=== PATIENT | male | born 1965 | race Caucasian/White ===

== ENCOUNTER → 2016-08-06 | Outpatient (CLI) | payer BC ==
[~2016-08-06] MED LIST: ALEVE220 MG PO; ASA325 MG PO; LOSARTAN-HCTZ1 EAC1 PO; METAMUCIL SF P3.4 GM PO; OXY IR DPS5 MG PO; PROTONIX40 MG PO; ULTRAM DPS50 MG PO
== END | disposition home or self-care (01) ==
LOC: PTH.S 09:00
DX: Z01.818 Encounter for other preprocedural examination (principal); I10 Essential (primary) hypertension; Z96.642 Presence of left artificial hip joint

== ENCOUNTER 2016-08-20 05:29 | Inpatient (IN) | payer BC ==
[~2016-08-20] VITALS: Ht 177.8 cm; Wt 111.0 kg
[2016-08-22] MEDS ORDERED: METAMUCIL SF P3.4 GM PO (14:39)
[2016-08-22] MEDS ORDERED: ASA325 MG PO (14:39)
[2016-08-22] MEDS ORDERED: ALEVE220 MG PO (14:39)
[2016-08-22] MEDS ORDERED: PROTONIX40 MG PO (14:39)
[2016-08-22] MEDS ORDERED: LOSARTAN-HCTZ1 EAC1 PO (14:39)
[2016-08-22] MEDS ORDERED: ULTRAM DPS50 MG PO (14:40)
[2016-08-22] MEDS ORDERED: OXY IR DPS5 MG PO (14:40)
--- NOTE | 2016-09-07 07:39 | OR ---
ADMIT: 08/20/2016 RM/LOC: [facility] MR#: [id number] [address] [address] [address] [place] [address] Operative/Delivery Room Report SEX: M AGE: 51 : 1965 SURGERY DATE: 08/20/2016 SURGEON: Josafat Carrillo MD PREOPERATIVE DIAGNOSES: 1. Left hip degenerative joint disease. 2. Left hip slipped capital femoral epiphysis status post prior pinning with retained hardware. POSTOPERATIVE DIAGNOSES: 1. Left hip degenerative joint disease. 2. Left hip slipped capital femoral epiphysis status post prior pinning with retained hardware. PROCEDURES: 1. Left total hip arthroplasty. 2. Left femur hardware removal. FILM PROJECTOR OPERATOR: Melo Barron PA-C ANESTHESIA: General. COMPLICATIONS: None. DESCRIPTION OF PROCEDURE: The patient was taken to the operating room, received a general anesthetic. He was placed in lateral decubitus position. Left hip was prepped and draped in standard fashion. A posterior approach was performed. Dissection was carried through the subcutaneous tissue. He was very stiff with minimal motion. He had a probably 20 degree external rotation contracture. We identified the piriformis tendon and released the piriformis tendon capsule and external rotators in one capsular flap. Released the capsule around the inferior femoral neck. We had released capsule off the superior acetabulum for exposure. We are able to dislocate the hip. At that point, he had a very deformed femoral head with a very short neck due to prior injury. At that point, we made a preliminary femoral neck cut with an oscillating saw and a reciprocating saw. We then piecemeal the femoral head off the underlying Rousseau pins. There is a three Rousseau pins retained within the femoral head. We used the broken screw removal kit and we are able to remove these in an antegrade fashion through the femoral head. One of the nuts came out with the pin from the lateral cortex, the other two lateral nuts were retained within the cortex. We left them within the bone and felt it is necessary to remove when they were not blocking any of the hip prosthesis. At that point, we opened up the piriformis fossa with the reamer. We then reamed up to a size 6. We then broached up to a size 6. This had an excellent press fit. We left the broach in the canal to protect it. At that point, we exposed the acetabulum. He had a large anterior osteophytes and inferior osteophytes. We reamed the acetabulum up to a 53 size reamer. We then impacted a 54 mm Gription pinnacle cup with screw holes inferiorly. We had an excellent press- fit. No supplemental screws required. At that point, I removed the inferior ADMIT: 08/20/2016 RM/LOC: [facility] MR#: [id number] [address] [place] [id number] [address] [place] [address] Operative/Delivery Room Report SEX: M AGE: 51 : 1965 and anterior osteophytes to stop any impingement. We then placed a hole eliminator, put in a +4 neutral liner to restore offset. We then did an intra- articular block with bupivacaine. We then reduced the hip with a standard offset +5 head and neck. At that point, we had excellent soft tissue tension. No impingement in extension and external rotation. We could flex and internally rotate to 60 degrees with no dislocation. At that point, there is just a soft tissue mechanical block. We did restore his leg lengths to equal. At that point, we dislocated the hip, removed the remaining trial components. We then impacted a size 6 standard offset [place] stem. Impacted a +5, 36 mm ceramic head. Again reduced the hip and it again found to be stable. We then irrigated out the wounds the final time. We repaired the posterior capsular structures with #5 Tycron and interrupted 0 Vicryl. We repaired the tensor fascia with interrupted and running 0 Vicryl suture, subcutaneous with 2-0 Vicryl, placed a subcuticular stitch followed by parental hip wound dressing. The patient was taken to the recovery room in stable condition. No complications. Josafat Carrillo MD/ edwin JOB #: [id number] CC: Josafat Carrillo, Attending Physician Alberto Arreola, Family Physician
--- NOTE | 2016-09-07 07:45 | HP ---
ADMIT: 08/20/2016 RM/LOC: [facility] MR#: [id number] [address] [address] [address] [place] [address] Pre-OP History and Physical SEX: M AGE: 51 : 1965 DATE OF SERVICE: CHIEF COMPLAINT: Left hip pain. HISTORY OF PRESENT ILLNESS: The patient is a 51-year-old male with long- standing history of left hip pain. He actually had a left slipped capital femoral epiphysis when he was a kid, and had a left hip pinning by Dr. Platt. Over the years, he developed increasing left hip discomfort, now limits his activity. He has no left hip arthritis now being admitted for total hip arthroplasty. PAST MEDICAL HISTORY: Hypertension. PAST SURGICAL HISTORY: Left hip pinning. MEDICATIONS: 1. Aleve. 2. Lovastatin. 3. Hydrochlorothiazide. ALLERGIES: NONE. SOCIAL HISTORY: Denies any tobacco or alcohol use. REVIEW OF SYSTEMS: Negative. PHYSICAL EXAMINATION: Ill appearing male in no acute distress. Walks antalgic gait on the left lower extremity. He has about 10-15 degree external rotation contracture. We can external rotate further to 45 degrees, flex to 100. Left lower extremity about a centimeter shorter than the right. Legs are otherwise neurovascularly intact. No pain in the back. DIAGNOSTIC DATA: X-rays, AP lateral and AP pelvis shows advanced left hip ADMIT: 08/20/2016 RM/LOC: [facility] MR#: [id number] [address] [address] [place] [address] Pre-OP History and Physical SEX: M AGE: 51 : 1965 arthritis. No joint space remaining, peripheral osteophytes. He has 3 Rousseau pins within the femoral head. The nuts of the Rousseau pin appeared to be encase the lateral femoral cortex. IMPRESSION: 1. Advanced left hip degenerative joint disease. 2. Retained femoral hardware. PLAN: At this point, we talked about different options. We are going to plan on doing a left standard total hip arthroplasty. We will have to remove the pins. He is aware of the risk, benefits, and options and agreed to proceed. He has been seen and cleared from a medical standpoint. Josafat Carrillo MD/ edwin JOB #: [id number] CC: Josafat Carrillo, Attending Physician Alberto Arreola, Family Physician
--- NOTE | 2016-09-17 07:05 | DS ---
ADMIT: 08/20/2016 RM/LOC: [address] [facility] MR#: [id number] [address] [address] [address]ia [address] [place] [address] General Discharge Summary SEX: M AGE: 51 : 1965 ADMISSION DATE: 08/20/2016 DISCHARGE DATE: 08/21/2016 REASON FOR ADMISSION: Elective left total hip arthroplasty after increasing left hip discomfort, which limits his activity. PAST MEDICAL HISTORY: Remarkable for recent colonoscopy, hypertension, umbilical hernia repair, shoulder surgery, hand surgery, ACL repair, and hip pinning for a slipped capital femoral epiphysis. PREOPERATIVE DIAGNOSES: 1. Left hip degenerative joint disease. 2. Left hip slipped capital femoral epiphysis status post prior pinning with retained hardware. POSTOPERATIVE DIAGNOSIS: 1. Left hip degenerative joint disease. 2. Left hip slipped capital femoral epiphysis status post prior pinning with retained hardware. PROCEDURE PERFORMED: 1. Left femur hardware removal. 2. Left total hip arthroplasty. SURGEON: Josafat Carrillo MD SEED CORN MANAGER PRODUCTION: Melo Barron PA-C ANESTHESIA: General. COMPLICATIONS: None. HOSPITAL COURSE: The patient was admitted on 08/20/2016, for elective left total hip arthroplasty with a left femur hardware removal from a previous left hip pinning done by Dr. Carrillo without any complications. The patient tolerated the procedure well. Postoperatively, he did well with pain control. As expected, he did suffer from acute blood loss anemia. His hemoglobin dropped to 13.7 on 08/21/2016, but he remained hemodynamically stable and did not require a blood transfusion. On postoperative day #1, he was doing well with physical therapy and participating in all activities. He was safe, stable, and ready for discharge home with plans for outpatient physical therapy exercises. DISCHARGE MEDICATIONS: 1. Aleve 440 mg everyday. ADMIT: 08/20/2016 RM/LOC: [address] [facility] MR#: [id number] [facility] [address] [place], [place] [address] BESS ROSCO[address] Bhatia [address] [place] [address] General Discharge Summary SEX: M AGE: 51 : 1965 2. Losartan/hydrochlorothiazide 100/25 mg everyday. 3. Metamucil in the evening. 4. Aspirin 325 mg at bedtime for 6 weeks. 5. Protonix 40 mg at bedtime for 6 weeks. 6. Tramadol 50 mg 1 to 2 tablets every 4 to 6 hours as needed for pain. 7. Oxycodone IR 5 mg 1 to 2 tablets every 4 to 6 hours as needed for breakthrough pain. DISCHARGE INSTRUCTIONS: The patient was discharged home with plans for outpatient physical therapy exercises done at home per total hip arthroplasty protocol. Follow up in the orthopedic office in 2 weeks for wound check, in 6 weeks with x-ray. Follow up with primary care as directed. MOLLY Bedolla / Josafat Carrillo MD / edwin JOB #: [id number] CC: Josafat Carrillo MD, Attending Physician Alberto Arreola MD, Family Physician
--- NOTE | 2016-09-17 10:39 | CO ---
ADMIT: 08/20/2016 RM/LOC: [facility] MR#: [id number] [address] [address] [address] [place] [address] Consultation Report SEX: M AGE: 51 : 1965 DATE OF CONSULTATION: 08/06/2016 ATTENDING PHYSICIAN: Josafat Carrillo CONSULTING PHYSICIAN: Alberto Arreola MD REASON FOR CONSULT: Preoperative clearance. HISTORY OF PRESENT ILLNESS: This is a 51-year-old white male, who has longstanding history of left hip pain. He can hardly walk secondary to the discomfort, it is radiating down into his knee, it has changed in the way he is walking. He is no longer able to get along and do the things he wants to do. He has failed conservative therapy and scheduled to undergo right hip total arthroplasty. He denies any recent changes in his health. No fevers, no chills, no cough, no congestion. No other specific concerns or complaints. PAST MEDICAL HISTORY: Remarkable for recent colonoscopy, hypertension, umbilical hernia repair, shoulder surgery, hand surgery, ACL repair, and hip surgery, which was when he was a teenager for what sounds like slipped capital femoral epiphysis. CURRENT MEDICATIONS: 1. Aleve 220 mg two tabs daily. 2. Losartan/HCTZ 100/25 mg daily. 3. Metamucil one capsule daily. ALLERGIES: NONE. FAMILY HISTORY: Father , had coronary artery disease. Mother, hypertension. Paternal grandmother, cancer. REVIEW OF SYSTEMS: GENERAL: No fevers or chills. HEENT: No headaches, blurred vision, or double vision. CARDIAC: No chest pain. PULMONARY: Shortness of breath. GI: No nausea, vomiting, diarrhea, or constipation. : No dysuria, urgency, or frequency. ENDOCRINE: No polyuria, polydipsia. PSYCH: No depression. All others are negative. PHYSICAL EXAMINATION: VITAL SIGNS: Blood pressure 126/86, pulse 93, respirations 18, and temp 99.7. GENERAL: In no acute distress. He is alert, oriented, interactive. HEENT: Pupils reactive. Conjunctivae are clear. Clear nasal mucosa. Clear oropharynx. Moist mucous membranes. NECK: Soft and supple. LUNGS: Clear to auscultation with good respiratory effort. ADMIT: 08/20/2016 RM/LOC: [facility] MR#: [id number] [address] [address] [address] [place] [address] Consultation Report SEX: M AGE: 51 : 1965 HEART: Regular rate without murmur. ABDOMEN: Obese, soft, and nontender. EXTREMITIES: No cyanosis. No clubbing. No edema. Does have an antalgic gait. ASSESSMENT: 1. Left hip degenerative joint disease. 2. Hypertension. PLAN: His EKG shows nothing acute. BMP and CBC unremarkable. He has no signs or symptoms of acute illness. I would recommend proceeding with the procedure as scheduled. We will use enteric-coated aspirin full strength for six weeks in the perioperative period for DVT prophylaxis. Alberto Arreola MD/ edwin JOB #: [id number] CC: Josafat Carrillo, Attending Physician Alberto Arreola, Family Physician
== END 2016-08-21 17:17 | disposition home or self-care (01) | DRG 470 ==
LOC: WOR 05:29 → 5MS 05:29
PROVIDERS: ADMIT Orthopaedic Surgery
PROC: 0QP704Z Removal of Internal Fixation Device from Left Upper Femur, Open Approach (ICD-10-PCS; principal; 2016-08-20)
PROC: 0SRB03A Replacement of Left Hip Joint with Ceramic Synthetic Substitute, Uncemented, Open Approach (ICD-10-PCS; principal; 2016-08-20)
DX: M16.12 Unilateral primary osteoarthritis, left hip (principal); I10 Essential (primary) hypertension; Z82.49 Family history of ischemic heart disease and other diseases of the circulatory system